=== PATIENT | male | born 1960 | race Caucasian/White ===

== ENCOUNTER 2020-06-12 20:06 | Inpatient (IN) ==
[2020-06-12 21:06] LABS: Basophils % 0.2 % (0.0-0.8); Hematocrit 44.4 VOL% (42.0-52.0); Hemoglobin 14.7 GM/DL (14.0-18.0); Immature Granulocytes % 0.9 %; Immature Granulocytes Absolute 0.15 #; Lymphocytes # 0.9 10*3/uL (1.4-4.0); Lymphocytes % 4.9 % (21.2-54.2); Mean Corpuscular HGB Conc 33.1 GM/DL (32-36); Mean Corpuscular Volume 94.3 FL (87-102); Mean Platelet Volume 9.2 FL (9.6-12.0); Monocytes % 7.3 % (1.7-12.7); Neutrophils % 86.7 % (38.7-73.9); Platelet Count 263 T/CUMM (130-400); Red Blood Count 4.71 MC/CUMM (3.8-5.5); Red Cell Distribution Width 12.5 % (9.3-17.3); White Blood Count 17.6 T/CUMM (4-12)
[2020-06-12 21:22] LABS: INR 1.1; PT Patient Result 11.3 SECS (9.8-11.9); Partial Thromboplastin Time 27.4 SECS (23.9-33.8)
[2020-06-12 21:25] LABS: Alanine Aminotransferase 27 U/L (16-61); Albumin 3.3 G/DL (3.4-5.0); Alkaline Phosphatase 84 U/L (45-117); Amylase 22 U/L (25-115); Aspartate Amino Transferase 17 U/L (0-37); Blood Urea Nitrogen 28 MG/DL (7-18); Calcium 8.7 MG/DL (8.5-10.1); Estimated Glom Filtration Rate 70 ML/MIN; Glucose 115 MG/DL (74-106); Osmolality,Calculated 263.1 MOS/KG (273-304); Total Protein 7.4 G/DL (6.4-8.3); Troponin I < 0.015 NG/ML (0.00-0.045)
[2020-06-12 21:47] LABS: Lymphocytes 3 % (20-55); Platelet Estimate Adequate; Segmented Neutrophils 92 % (50-85); Total Cells Counted 100
[2020-06-12 21:54] LABS: Apearance,Urine Slightly Hazy (Clear); Bacteria,Urine Occasional /HPF (Few); Bilirubin,Urine Negative (Negative); Blood, Urine Negative (Negative); Glucose,Urine (UA) Negative (Negative); Hyaline Casts,Urine 177 /LPF (0-3); Ketones,Urine Negative (Negative); Mucus,Urine Many /LPF (Occasional); Nitrite,Urine Negative (Negative); Protein,Urine 30 MG/DL; RBC,Urine 2 /HPF (0-4); Urine Color Amber (Yellow); Urine Specific Gravity 1.024 (1.001-1.035); WBC,Urine 1 /HPF (0-6)
[2020-06-12] MEDS ORDERED: cefTRIAXone 1,000 MG in SODIUM CHLORIDE 0.9% 100 ML IV STA (22:53)
[2020-06-12] MEDS ORDERED: ENOXAPARIN 100 MG/ML SYRINGE SUBCUT STA (22:53)
[2020-06-12] MEDS ORDERED: SODIUM CHLORIDE 0.9% 1,000 ML IV STA (22:53)
[2020-06-12] MEDS ORDERED: ONDANSETRON 4 MG/2 ML VIAL IV PRN (23:07)
[2020-06-12] MEDS ORDERED: DEXTROSE 50% 25 GM/50 ML VIAL IV PRN (23:07)
[2020-06-12] MEDS ORDERED: GLUCAGON 1 MG VIAL IM PRN (23:07)
[2020-06-12] MEDS ORDERED: AZITHROMYCIN INJ 500 MG in SODIUM CHLORIDE 0.9% 250 ML IV SCH (23:30)
[2020-06-12] MEDS ORDERED: SODIUM CHLORIDE 0.9% 1,000 ML IV SCH (23:30)
[2020-06-12 23:35] LABS: Ferritin 167.1 ng/ml (26-388)
[2020-06-13 09:15] LABS: Basophils % 0.2 % (0.0-0.8); Eosinophils % 0.1 % (0.00-10.9); Hematocrit 40.5 VOL% (42.0-52.0); Hemoglobin 13.8 GM/DL (14.0-18.0); Immature Granulocytes % 0.7 %; Immature Granulocytes Absolute 0.11 #; Lymphocytes % 6.5 % (21.2-54.2); Mean Corpuscular HGB Conc 34.1 GM/DL (32-36); Mean Corpuscular Volume 93.3 FL (87-102); Mean Platelet Volume 9.1 FL (9.6-12.0); Monocytes % 9.5 % (1.7-12.7); Platelet Count 264 T/CUMM (130-400); Red Blood Count 4.34 MC/CUMM (3.8-5.5); Red Cell Distribution Width 12.6 % (9.3-17.3); White Blood Count 14.8 T/CUMM (4-12)
[2020-06-13 09:33] LABS: Hypochromasia 1+
[2020-06-13 09:34] LABS: Platelet Estimate Normal
[2020-06-13 09:48] LABS: Albumin 3.1 G/DL (3.4-5.0); Bilirubin,Total 2.4 MG/DL (0.2-1.0); Calcium 8.9 MG/DL (8.5-10.1); Ferritin 210.3 ng/ml (26-388); Osmolality,Calculated 263.8 MOS/KG (273-304); Total Protein 7.3 G/DL (6.4-8.3)
[2020-06-13] MEDS: ENOXAPARIN 120 MG/0.8 ML SYRINGE SUBCUT SCH ×2 (09:50→21:07)
[2020-06-13] MEDS: PANTOPRAZOLE 40 MG TABLET PO SCH (09:50)
[2020-06-13] MEDS: AZITHROMYCIN 250 MG TABLET PO SCH (09:50)
[2020-06-13] MEDS: POLYETHYLENE GLYCOL POWDER 17 GM PACK PO SCH (11:04)
[2020-06-13] MEDS: cefTRIAXone 1,000 MG in SYRINGE 1 EACH IV SCH (21:06)
[2020-06-14] MEDS: POLYETHYLENE GLYCOL POWDER 17 GM PACK PO SCH (08:25)
[2020-06-14] MEDS: AZITHROMYCIN 250 MG TABLET PO SCH (08:26)
[2020-06-14] MEDS: METOPROLOL TARTRATE 25 MG TABLET PO SCH (09:07)
[2020-06-14] MEDS: lisinopriL 20 MG TABLET PO SCH (09:07)
[2020-06-14] MEDS: TAMSULOSIN 0.4 MG CAPSULE PO SCH (09:07)
[2020-06-14] MEDS: AMIODARONE 200 MG TABLET PO SCH (09:07)
[2020-06-14] MEDS: ASPIRIN EC 81 MG TABLET PO SCH (09:07)
[2020-06-14] MEDS ORDERED: MAGNESIUM HYDROXIDE SUSP 30 ML UDCUP PO PRN (09:08)
[2020-06-14] MEDS: ENOXAPARIN 120 MG/0.8 ML SYRINGE SUBCUT SCH (09:25)
[2020-06-14] MEDS: PANTOPRAZOLE 40 MG TABLET PO SCH (10:25)
[2020-06-14] MEDS ORDERED: CARBOXYMETHYLCELLULOSE 1% OPH SOLN BOTH EYES PRN (11:07)
[2020-06-14] MEDS ORDERED: SODIUM PHOSPHATE ENEMA 133 ML BOTTLE RECTAL ONE (13:32)
[2020-06-14] MEDS: APIXABAN 5 MG TABLET PO SCH (20:53)
[2020-06-14] MEDS: cefTRIAXone 1,000 MG in SYRINGE 1 EACH IV SCH (20:54)
[2020-06-15 08:12] VITALS: BP 136/89
[2020-06-15] MEDS: POLYETHYLENE GLYCOL POWDER 17 GM PACK PO SCH (09:29)
[2020-06-15] MEDS: PANTOPRAZOLE 40 MG TABLET PO SCH (09:30)
[2020-06-15] MEDS: APIXABAN 5 MG TABLET PO SCH (09:42)
[2020-06-15] MEDS: AZITHROMYCIN 250 MG TABLET PO SCH (10:08)
[2020-06-15] MEDS: METOPROLOL TARTRATE 25 MG TABLET PO SCH (10:53)
[2020-06-15] MEDS: TAMSULOSIN 0.4 MG CAPSULE PO SCH (10:53)
[2020-06-15] MEDS: AMIODARONE 200 MG TABLET PO SCH (10:54)
[2020-06-15] MEDS: lisinopriL 20 MG TABLET PO SCH (10:54)
[2020-06-15] MEDS: ASPIRIN EC 81 MG TABLET PO SCH (10:54)
== END 2020-06-15 11:25 | disposition home or self-care (01) | DRG 134 ==
LOC: EDBD → EDUNIT# → N.ED 20:06 → SUATTDRO 23:07 → N.EDINP 23:07 → N.TELEN 06-13 14:18
PROVIDERS: ADMIT Internal Medicine; ATTEND Internal Medicine